=== PATIENT | male | born 1940 | race Caucasian/White ===

== ENCOUNTER → 2019-04-09 | Outpatient (CLI) | payer OTHER ==
[~2019-04-09] MED LIST: ATENOLOL 25 MG25 M1; GLUMETZA500; GLYBURIDE 5 MG T5 M1; LEVEMIR; LIPITOR20 MG; LISINOPRIL20 MG; LOVASTAT40; MOBIC15 MG; NORCO 5-325 TA1 EACH PO; PRINZIDE 20-251 EACH PO; PROVENTIL IH; ZPAK PO
== END ==
LOC: M.CT 08:07
DX: J98.4 Other disorders of lung (principal); J92.9 Pleural plaque without asbestos; I51.7 Cardiomegaly; K76.0 Fatty (change of) liver, not elsewhere classified; K80.20 Calculus of gallbladder without cholecystitis without obstruction; M47.814 Spondylosis without myelopathy or radiculopathy, thoracic region; Z95.1 Presence of aortocoronary bypass graft

== ENCOUNTER → 2019-10-01 | Outpatient (CLI) | payer OTHER | LOC: M.CT 11:17 | DX: J44.9 Chronic obstructive pulmonary disease, unspecified (principal) ==

== ENCOUNTER 2020-06-14 09:49 | Emergency (ER) | payer OTHER ==
[~2020-06-14] VITALS: Ht 182.9 cm; Wt 90.7 kg
[~2020-06-14 09:49] MED LIST changes: -GLUMETZA500; +GLUMETZA500 PO; -LIPITOR20 MG; +LIPITOR20 MG PO
[2020-06-14] MEDS ORDERED: KAPSPARGO SPRIN25 MG PO (10:04)
[2020-06-14] MEDS ORDERED: ASA81BEC PO (10:04)
[2020-06-14] MEDS ORDERED: LISINOPRIL2.5 MG PO (10:04)
[2020-06-14] MEDS ORDERED: PROSCAR 5MG TABL5 MG PO (10:05)
[2020-06-14] MEDS ORDERED: FLOMAX0.4 MG PO (10:05)
[2020-06-14] MEDS ORDERED: SUPER THERAVIT1 EACH PO (10:06)
[2020-06-14] MEDS ORDERED: NOVOLIN 70100 UNIT/1 SUBQ (10:06)
[2020-06-14] MEDS ORDERED: TRELEGY ELLIPT1 EACH INH (10:07)
[2020-06-14 10:48] LABS: ABSOLUTE BASOPHILS 0.1 thou/uL (0.0-0.2); ABSOLUTE EOSINOPHILS 0.9 thou/uL (0.0-0.7); ABSOLUTE LYMPHOCYTES 1.8 thou/uL (0.8-5.3); ABSOLUTE MONOCYTES 0.8 thou/uL (0.0-1.2); ABSOLUTE NEUTROPHILS 6.3 thou/uL (1.6-8.1); BASOPHILS 1.1 %; EOSINOPHILS 9.3 %; HEMATOCRIT 42.2 % (42.0-52.0); HEMOGLOBIN 14.3 gm/dL (14.0-18.0); MCH 29.7 pg (26.0-34.0); MCHC 33.8 g/dL (28.0-37.0); MONOCYTES 8.1 %; MPV 10.8 fl. (7.2-11.1); NUCLEATED RBCS 0 /100WBC; PLATELET COUNT* 141 thou/uL (150-400); POLYS 63.5 %; RDW-CV 14.1 % (10.5-14.5)
[2020-06-14 11:01] LABS: CALCIUM 9.4 mg/dL (8.5-10.1); CREATININE 1.1 mg/dL (0.6-1.3); POTASSIUM 3.9 mmol/L (3.5-5.1)
[2020-06-14 11:05] LABS: ALBUMIN 3.6 g/dL (3.4-5.0); TOTAL BILIRUBIN 0.6 mg/dL (<0.1-1.0); TOTAL PROTEIN 7.2 g/dL (6.4-8.2)
[2020-06-14 11:33] LABS: URINE BILIRUBIN NEGATIVE (Negative); URINE BLOOD TRACE (Negative); URINE CLARITY CLEAR; URINE COLOR YELLOW; URINE GLUCOSE-RANDOM TRACE (Negative); URINE KETONES NEGATIVE (Negative); URINE LEUKOCYTES-REFLEX 2+ (Negative); URINE NITRITE-REFLEX NEGATIVE (Negative); URINE PROTEIN NEGATIVE (Negative); URINE SPECIFIC GRAVITY 1.015 (1.005-1.030); URINE UROBILINOGEN 0.2 E.U./dl (0.2-1.0)
[2020-06-14 11:39] LABS: CASTS None Seen /LPF (None Seen); CRYSTALS None Seen /LPF (None Seen); SQUAMOUS 0-3 Few /LPF (0-3); URINE RBC 0-2 Rare /HPF (0-2); URINE WBC-REFLEX 6-15 Few /HPF (0-5)
[2020-06-14] MEDS ORDERED: NORCO 5-325 TA1 EAC2 PO (11:54)
[2020-06-14] MEDS ORDERED: KEFLEX500 M1 PO (11:54)
[2020-06-14 12:09] VITALS: BP 108/77
--- NOTE | 2020-06-14 14:26 | EKG ---
[place] [address] ELECTROCARDIOGRAM REPORT Name: JULIO CORTES Room: [facility]#: [id number] Admission: 06/14/20 Attend Phys: Discharge: 06/14/20 Date of : 42 Date of Service: 06/14/20 1021 Report #: [id number] THIS REPORT FOR: //name// [facility] ED Test Date: 2020-06-14 Test Time: 10:21:25 Pat Name: JULIO CORTES Department: Room: Gender: Farmworker Animal: : 1940 Requested By: Tesfaye Can Order Number: [id number] MD: Ramirez Sepulveda Measurements Intervals [place] Rate: 69 P: 45 NE: 190 QRS: 39 QRSD: 116 T: 18 QT: 413 QTc: 443 Interpretive Statements Sinus rhythm Nonspecific intraventricular conduction delay Borderline T abnormalities, inferior leads Compared to ECG 05/15/2013 19:09:16 Atrial premature complex(es) no longer present Electronically Signed On 06-14-2020 14:26:05 CDT by Ramirez Sepulveda [email or web address] <ELECTRONICALLY SIGNED> By: Ramirez Sepulveda MD, FACC 06/14/20 1426 1021 1021 Ramirez Sepulveda MD, [facility] /EPI
== END 2020-06-14 12:10 | disposition home or self-care (01) ==
LOC: M.ERS 09:49
PROVIDERS: Emergency Medicine Emergency Medical Services
DX: N39.0 Urinary tract infection, site not specified (principal); E11.9 Type 2 diabetes mellitus without complications; I10 Essential (primary) hypertension; E78.00 Pure hypercholesterolemia, unspecified; Z90.49 Acquired absence of other specified parts of digestive tract; Z79.4 Long term (current) use of insulin

== ENCOUNTER 2021-05-17 09:44 | Emergency (ER) | payer OTHER ==
[~2021-05-17] VITALS: Ht 182.9 cm; Wt 90.7 kg
[~2021-05-17 09:44] MED LIST changes: +ASA81BEC PO; +FLOMAX0.4 MG PO; +KAPSPARGO SPRIN25 MG PO; +KEFLEX500 M1 PO; +LISINOPRIL-HCT1 EAC2 PO; +NORCO 5-325 TA1 EAC2 PO; +NOVOLIN 70100 UNIT/1 SUBQ; +PROSCAR 5MG TABL5 MG PO; +SUPER THERAVIT1 EACH PO; +TRELEGY ELLIPT1 EACH INH
[2021-05-17] MEDS ORDERED: IPRAT-ALBUT 0.5-3 ML INH (09:57)
[2021-05-17 10:20] LABS: URINE BILIRUBIN NEGATIVE (Negative); URINE BLOOD NEGATIVE (Negative); URINE CLARITY CLEAR; URINE COLOR YELLOW; URINE GLUCOSE-RANDOM 3+ (Negative); URINE KETONES NEGATIVE (Negative); URINE LEUKOCYTES-REFLEX NEGATIVE (Negative); URINE NITRITE-REFLEX NEGATIVE (Negative); URINE PROTEIN NEGATIVE (Negative); URINE UROBILINOGEN 0.2 E.U./dl (0.2-1.0)
[2021-05-17 10:35] LABS: ABSOLUTE BASOPHILS 0.1 thou/uL (0.0-0.2); ABSOLUTE EOSINOPHILS 0.7 thou/uL (0.0-0.7); ABSOLUTE LYMPHOCYTES 1.5 thou/uL (0.8-5.3); ABSOLUTE MONOCYTES 0.7 thou/uL (0.0-1.2); ABSOLUTE NEUTROPHILS 5.7 thou/uL (1.6-8.1); BASOPHILS 0.8 %; EOSINOPHILS 7.9 %; HEMATOCRIT 41.1 % (42.0-52.0); HEMOGLOBIN 13.8 gm/dL (14.0-18.0); LYMPHOCYTES 17.2 %; MCH 30.2 pg (26.0-34.0); MCHC 33.5 g/dL (28.0-37.0); MCV 90.1 fL (80.0-100.0); MONOCYTES 8.2 %; MPV 11.2 fl. (7.2-11.1); NUCLEATED RBCS 0 /100WBC; PLATELET COUNT* 133 thou/uL (150-400); POLYS 65.9 %; RBC 4.56 mil/uL (4.50-6.00); RDW-CV 13.6 % (10.5-14.5); WBC 8.7 thou/uL (4.0-11.0)
[2021-05-17 10:51] LABS: CALCIUM 9.2 mg/dL (8.5-10.1); CREATININE 1.4 mg/dL (0.6-1.3); POTASSIUM 4.7 mmol/L (3.5-5.1)
[2021-05-17 10:56] LABS: ALBUMIN 3.7 g/dL (3.4-5.0); TOTAL BILIRUBIN 0.4 mg/dL (<0.1-1.0); TOTAL PROTEIN 7.1 g/dL (6.4-8.2)
[2021-05-17] MEDS ORDERED: CITRATE OF MAG296 M1 PO (11:27)
[2021-05-17 11:37] VITALS: BP 156/70
--- NOTE | 2021-05-17 12:40 | EKG ---
[place] [address] ELECTROCARDIOGRAM REPORT Name: JULIO CORTES Room: [facility]#: [id number] Admission: 05/17/21 Attend Phys: Discharge: 05/17/21 Date of : 42 Date of Service: 05/17/21 [facility] Report #: [id number] THIS REPORT FOR: //name// [facility] ED Test Date: 2021-05-17 Test Time: 10:24:45 Pat Name: JULIO CORTES Department: Room: Gender: Material Engineer: : 1940 Requested By: Yamil Purdy Order Number: [id number] MD: Phu Teague Measurements Intervals [place] Rate: 73 P: -4 SC: 203 QRS: 5 QRSD: 113 T: -5 QT: 383 QTc: 422 Interpretive Statements Sinus rhythm Low voltage, precordial leads Borderline T abnormalities, inferior leads Baseline wander in lead(s) II,III,aVF Compared to ECG 06/14/2020 10:21:25 Low QRS voltage now present T-wave abnormality still present Electronically Signed On 05-17-2021 12:40:10 CDT by Phu Teague [email or web address] <ELECTRONICALLY SIGNED> By: Phu Teague MD, FAC 05/17/21 1240 1024 1024 Phu Teague MD, [facility] /EPI
== END 2021-05-17 11:40 | disposition home or self-care (01) ==
LOC: M.ERS 09:44
PROVIDERS: Physician Assistant
DX: K59.00 Constipation, unspecified (principal); R05 Cough; J44.9 Chronic obstructive pulmonary disease, unspecified; Z87.442 Personal history of urinary calculi; E11.9 Type 2 diabetes mellitus without complications; I10 Essential (primary) hypertension; I25.2 Old myocardial infarction; E78.00 Pure hypercholesterolemia, unspecified; Z90.49 Acquired absence of other specified parts of digestive tract; Z98.890 Other specified postprocedural states; Z79.899 Other long term (current) drug therapy; Z79.82 Long term (current) use of aspirin; Z79.4 Long term (current) use of insulin

== ENCOUNTER 2021-07-27 09:11 | Emergency (ER) | payer OTHER ==
[~2021-07-27] VITALS: Ht 182.9 cm; Wt 95.3 kg
[~2021-07-27 09:11] MED LIST changes: +CITRATE OF MAG296 M1 PO; +IPRAT-ALBUT 0.5-3 ML INH
[2021-07-27] MEDS ORDERED: METFORMIN HCL500 M3 PO (09:41)
[2021-07-27] MEDS ORDERED: NOVOLOG100 UNIT/2 SUBQ (09:41)
[2021-07-27] MEDS ORDERED: OTHER (09:42)
[2021-07-27] MEDS ORDERED: LEVEMIR100 UNIT/2 SUBQ (09:42)
[2021-07-27] MEDS ORDERED: ZPAK PO (10:09)
[2021-07-27] MEDS ORDERED: DEXAMETHASONE 44 M1 PO (10:09)
[2021-07-27 10:20] VITALS: BP 116/62
== END 2021-07-27 10:20 | disposition home or self-care (01) ==
LOC: M.ERS 09:11
DX: U07.1 COVID-19 (principal); E11.9 Type 2 diabetes mellitus without complications; I10 Essential (primary) hypertension; E78.00 Pure hypercholesterolemia, unspecified; J44.9 Chronic obstructive pulmonary disease, unspecified; Z90.49 Acquired absence of other specified parts of digestive tract; Z79.899 Other long term (current) drug therapy